=== PATIENT | female | born 1940 | race Caucasian/White ===

== ENCOUNTER 2022-07-20 11:56 | Emergency (ER) | payer OTHER, SELFPAY ==
[2022-07-20] VITALS (16 sets, daily range): BP systolic 144–172; BP diastolic 86–126; PULSE 67–106; RESP 13–26; TEMP 36.6; O2SAT 90–95; BMI 27.1
--- NOTE | 2022-07-20 12:10 | DI.RAD.S_ITS ---
PROCEDURE: XR CHEST 2V INDICATIONS: Shortness of breath TECHNIQUE: 2 views of the chest were acquired. COMPARISON: None. FINDINGS: Cardiomegaly. Increased interstitial markings in both lungs with mild pulmonary vascular congestion indicative of mild to moderate pulmonary edema. No acute airspace opacity. Small left pleural effusion. No pneumothorax. Left upper extremity PICC terminates in the inferior aspect of the SVC. IMPRESSION: Cardiomegaly with mild to moderate interstitial edema. Small left pleural effusion. Dictated by: Cayetano Thornton M.D. on 07/20/2022 at 12:36 Approved by: Cayetano Thornton M.D. on 07/20/2022 at 12:37
[2022-07-20 13:52] LABS: Add Manual Diff / Slide Review NO; Basophils Absolute Auto 100 /uL (0-100); Basophils Percent Auto 1.1 % (0-2); Eosinophils Absolute Auto 200 /uL (0-450); Hematocrit 33.6 % (36-46); Hemoglobin 11.2 g/dL (12.0-16.0); Lymphocytes Absolute Auto 900 /uL (1100-4500); Lymphocytes Percent Auto 9.2 % (25-40); Mean Corpuscular HGB Conc 33.4 % (30-36); Mean Corpuscular Hemoglobin 30.1 PG (26-34); Mean Corpuscular Volume 90.1 fL (80-100); Monocytes Absolute Auto 1000 /uL (0-900); Monocytes Percent Auto 10.2 % (3-14); Neutrophils Absolute Auto 7600 /uL (1500-7000); Neutrophils Percent Auto 77.5 % (50-75); Platelet Count 296 X10^3/uL (150-400); Red Blood Cell Count 3.74 X10^6/uL (4.0-5.2); Red Cell Distribution Width 16.2 % (11.6-14.8); White Blood Cell Count 9.7 X10^3/uL (4.5-11.0)
--- NOTE | 2022-07-20 13:53 | ED.SOB ---
HPI - SOB/Dyspnea General Chief Complaint: Shortness of Breath/Dyspnea Stated Complaint: SOB Time Seen by Provider: 07/20/22 12:10 Source: patient Mode of arrival: EMS Limitations: no limitations History of Present Illness HPI Narrative: Patient is a 82-year-old female with recent history of spinal at abscess in her cervical region. She also has history of atrial fibrillation, anemia, cardiomyopathy she is anticoagulated on Eliquis and Lovenox shots presenting today with increasing shortness of breath. She says that she was quite swollen and still feels like she is above her baseline weight. She started having some shortness of breath while lying flat last night. She has no lower extremity edema. He she denies shortness of breath with exertion. Staff at rehab facility noticed that her O2 sat was in the 80s. EMS called she did require 1-2 L of nasal cannula. She has no chest pain no abdominal pain. She has no palpitations. She has no new neurologic deficits. Related Data Home Medications Medication Instructions Recorded Confirmed [BLOOD PRESSURE MEDS] HS ##0 04/27/07 Previous Rx's Medication Instructions Recorded furosemide 40 mg tablet 40 mg PO BID #30 tabs 07/20/22 Allergies Allergy/AdvReac Type Severity Reaction Status Date / Time latex [LATEX] Allergy Mild RASH/ITCH Verified 07/20/22 12:01 codeine [CODEINE] AdvReac Intermediate nausea Verified 07/20/22 12:01 Review of Systems Review of Systems Narrative: GENERAL: Denies chills, fatigue, malaise, fever, sweats, travel HEENT: Denies sinus pain, ear pain, sore throat, difficulty swallowing, neck pain RESPIRATORY: See HPI CARDIOVASCULAR: See HPI GASTROINTESTINAL: Denies nausea, vomiting, abdominal pain, diarrhea, constipation, melena. : Denies dysuria, frequency, incontinence, hematuria, urinary retention, flank pain. MUSCULOSKELETAL: Denies weakness, joint pain, or bony pain SKIN: No rash, no erythema, no pruritus NEUROLOGIC: Denies weakness, dizziness, headache, numbness, change in speech, confusion PSYCHIATRIC: No concerning psychosocial issues. 12 point review of systems is negative except for those stated above and HPI Patient History Social History Smoking Status: Unknown if ever smoked Smoking Status: Unknown if ever smoked alcohol intake frequency: holidays/special occasions only Substance Use Type: does not use Exam Initial Vital Signs Initial Vital Signs: Vital Signs Temperature 97.9 F 07/20/22 11:58 Pulse Rate 69 07/20/22 11:58 Respiratory Rate 15 07/20/22 11:58 Blood Pressure 147/99 H 07/20/22 11:58 Pulse Oximetry 94 07/20/22 11:58 Oxygen Delivery Method 07/20/22 11:58 GENERAL: Alert pleasant 82-year-old female HEENT: Head atraumatic,EOMI, pupils reactive, face symmetric, moist mucous membranes CARDIOVASCULAR: Regular rate and rhythm without murmurs, rubs or gallops. RESPIRATORY: Mild crackles bilateral no tachypnea no conversational dyspnea ABDOMEN: Soft, nontender. Normoactive bowel sounds all 4 quadrants. No guarding or rebound. EXTREMITIES: Normal range of motion, no clubbing or edema. Neurovascularly intact NEUROLOGICAL: Alert and oriented x4 tissue recovery technician strength equal bilaterally, mild left leg SKIN: Warm, dry, no laceration, no petechiae, no rashes or lesions. Course Orders Ordered: ED Orders 07/20/22 12:10 XR chest 2V Stat Measure peak expiratory flow ONCE RT Consult Eval and Treat Now 07/20/22 12:30 EKG-12 Lead Stat 07/20/22 13:09 Complete Blood Count AUTO DIFF Stat Comprehensive Metabolic Panel Stat Lactate (Lactic Acid) Stat NT-proBNP (BNP-Adult 18+) Stat Prothrombin Time INR Stat Troponin & CK Cardiac Panel Stat 07/20/22 14:17 Urine Microscopic Stat Discontinued Medications Furosemide (Furosemide 40 Mg/4 Ml Vial) 40 mg IV NOW ONE Stop: 07/20/22 14:11 Last Admin: 07/20/22 15:30 Dose: 40 mg Documented By: MARIA ALEJANDRA Heparin Sodium (Porcine) (Heparin Flush (Cl/Picc/Mid-Line) 50 Unit/5 Ml Syringe) 50 unit IV NOW ONE Stop: 07/20/22 17:40 Last Admin: 07/20/22 17:43 Dose: 50 unit Documented By: MARIA ALEJANDRA Vital Signs Vital signs: Vital Signs - 8 hr 07/20/22 12:30 07/20/22 12:30 07/20/22 13:00 Pulse Rate 75 Respiratory Rate Blood Pressure 148/101 H 144/106 H Pulse Oximetry 94 Oxygen Delivery Method 07/20/22 13:00 07/20/22 13:30 07/20/22 13:30 Pulse Rate 77 67 Respiratory Rate 15 Blood Pressure 150/91 H Pulse Oximetry 93 93 Oxygen Delivery Method 07/20/22 14:00 07/20/22 14:00 07/20/22 14:30 Pulse Rate 76 69 Respiratory Rate 19 13 Blood Pressure 149/101 H Pulse Oximetry 95 92 Oxygen Delivery Method 07/20/22 14:31 07/20/22 14:31 07/20/22 15:00 Pulse Rate 68 Respiratory Rate 18 Blood Pressure 164/98 H 157/126 H Pulse Oximetry 94 Oxygen Delivery Method 07/20/22 15:00 07/20/22 15:30 07/20/22 15:30 Pulse Rate 77 80 Respiratory Rate 17 18 Blood Pressure 172/103 H Pulse Oximetry 93 94 Oxygen Delivery Method 07/20/22 16:00 07/20/22 16:00 07/20/22 16:30 Pulse Rate 90 96 H Respiratory Rate 24 Blood Pressure 171/118 H Pulse Oximetry 91 Oxygen Delivery Method 07/20/22 16:31 07/20/22 16:31 07/20/22 17:00 Pulse Rate 99 H 79 Respiratory Rate 15 Blood Pressure 165/100 H Pulse Oximetry 90 L 95 Oxygen Delivery Method 07/20/22 17:30 Pulse Rate 104 H Respiratory Rate 26 H Blood Pressure Pulse Oximetry 93 Oxygen Delivery Method Room Air MDM - SOB/Dyspnea Lab Data Result diagrams: 07/20/22 13:09 07/20/22 13:09 Labs: Lab Results 07/20/22 07/20/22 07/20/22 Range/Units 13:09 13:09 13:09 WBC 9.7 (4.5-11.0) X10^3/uL RBC 3.74 L (4.0-5.2) X10^6/uL Hgb 11.2 L (12.0-16.0) g/dL Hct 33.6 L (36-46) % MCV 90.1 (80-100) fL MCH 30.1 (26-34) PG MCHC 33.4 (30-36) % RDW 16.2 H (11.6-14.8) % Plt Count 296 (150-400) X10^3/uL Neut % (Auto) 77.5 H (50-75) % Lymph % (Auto) 9.2 L (25-40) % [place] % (Auto) 10.2 (3-14) % Eos % (Auto) 2.0 (2-4) % Baso % (Auto) 1.1 (0-2) % Neut # (Auto) 7600 H (3607-3955) /uL Lymph # (Auto) 900 L (0891-4904) /uL [place] # (Auto) 1000 H (0-900) /uL Eos # (Auto) 200 (0-450) /uL Baso # (Auto) 100 (0-100) /uL PT 14.2 H (10.1-12.7) SECONDS INR 1.2 (0.9-1.3) Sodium 137 (137-145) mmol/L Potassium 4.3 (3.4-5.1) mmol/L Chloride 102 (98-107) mmol/L Carbon Dioxide 25 (22-32) mmol/L BUN 38 H (7-17) mg/dL Creatinine 1.13 H (0.52-1.04) mg/dL Estimated GFR 49 L (>60) mL/min BUN/Creatinine Ratio 33.6 H (6-22) Glucose 106 (80-110) mg/dL Lactate (0.7-2.1) mmol/L Calcium 9.1 (8.4-10.2) mg/dL Total Bilirubin 0.4 (0.2-1.3) mg/dL AST 38 H (14-36) IU/L ALT 39 H (<35) IU/L Alkaline Phosphatase 165 H (38-126) U/L Total Creatine Kinase (30-135) U/L CK-MB (CK-2) CK-MB (CK-2) Rel Index Troponin I (0.01-0.034) ng/mL NT-Pro-B Natriuret Pep 29010 H (<450) pg/mL Total Protein 6.7 (6.3-8.2) g/dL Albumin 3.6 (3.5-5.0) g/dL Globulin 3.1 (1.7-4.1) g/dL Albumin/Globulin Ratio 1.2 (1.0-2.8) Urine RBC (0-5/HPF) Urine WBC (0-5/HPF) Ur Squamous Epith Cells (0-5/HPF) Urine Bacteria (None) Ur Culture Indicated? 07/20/22 07/20/22 07/20/22 Range/Units 13:09 13:09 14:17 WBC (4.5-11.0) X10^3/uL RBC (4.0-5.2) X10^6/uL Hgb (12.0-16.0) g/dL Hct (36-46) % MCV (80-100) fL MCH (26-34) PG MCHC (30-36) % RDW (11.6-14.8) % Plt Count (150-400) X10^3/uL Neut % (Auto) (50-75) % Lymph % (Auto) (25-40) % [place] % (Auto) (3-14) % Eos % (Auto) (2-4) % Baso % (Auto) (0-2) % Neut # (Auto) (1497-1461) /uL Lymph # (Auto) (1373-5102) /uL [place] # (Auto) (0-900) /uL Eos # (Auto) (0-450) /uL Baso # (Auto) (0-100) /uL PT (10.1-12.7) SECONDS INR (0.9-1.3) Sodium (137-145) mmol/L Potassium (3.4-5.1) mmol/L Chloride (98-107) mmol/L Carbon Dioxide (22-32) mmol/L BUN (7-17) mg/dL Creatinine (0.52-1.04) mg/dL Estimated GFR (>60) mL/min BUN/Creatinine Ratio (6-22) Glucose (80-110) mg/dL Lactate 1.3 (0.7-2.1) mmol/L Calcium (8.4-10.2) mg/dL Total Bilirubin (0.2-1.3) mg/dL AST (14-36) IU/L ALT (<35) IU/L Alkaline Phosphatase (38-126) U/L Total Creatine Kinase 43 (30-135) U/L CK-MB (CK-2) TNP CK-MB (CK-2) Rel Index TNP Troponin I < 0.012 (0.01-0.034) ng/mL NT-Pro-B Natriuret Pep (<450) pg/mL Total Protein (6.3-8.2) g/dL Albumin (3.5-5.0) g/dL Globulin (1.7-4.1) g/dL Albumin/Globulin Ratio (1.0-2.8) Urine RBC None seen (0-5/HPF) Urine WBC None seen (0-5/HPF) Ur Squamous Epith Cells None seen (0-5/HPF) Urine Bacteria None seen (None) Ur Culture Indicated? Cult not indicated Urine Dip Bedside Urine Glucose Negative Bedside Urine Bilirubin - Negative Bedside Urine Ketone - Negative Urine Specific [place] 1.015 Bedside Urine Occult Blood - Negative Bedside Urine pH 6.0 Bedside Urine Protein +/- 15 Bedside Urine Urobilinogen - Negative Bedside Urine Nitrite - Negative Bedside Urine Leukocytes - Negative Esterase Imaging Data Chest x-ray: Radiologist's Impression: nt: Ruslan Garcia MR#: [id number] : 1940 Acct:[id number] Age/Sex: 82 / F Date of Service: 07/20/22 Loc: ED Accession Number: [id number] ?? Procedure: XR chest 2V Ordering Provider: Coleen Noyola D.O. PROCEDURE:? XR CHEST 2V ? INDICATIONS:? Shortness of breath ? TECHNIQUE:? 2 views of the chest were acquired.? ? COMPARISON:? None. ? FINDINGS:? ? Cardiomegaly.? Increased interstitial markings in both lungs with mild pulmonary vascular congestion indicative of mild to moderate pulmonary edema.? No acute airspace opacity.? Small left pleural effusion.? No pneumothorax.? Left upper extremity PICC terminates in the inferior aspect of the SVC. ? IMPRESSION:? Cardiomegaly with mild to moderate interstitial edema.? Small left pleural effusion. ? ? Dictated by: Cayetano Thornton M.D. on 07/20/2022 at 12:36 ? ? ECG Data Interpretation: Atrial fibrillation rate [address] changes no priors to compare MDM Narrative Medical decision making narrative: The patient having any conversational dyspnea she is O2 levels 89 tonight 3% on room air. She is given Lasix here in the emergency department. At this time BNP elevated at 17,000 thousand probably does have acute exacerbation of congestive heart failure. This is unlikely to be pulmonary embolism seeing as though she is on both Eliquis and Lovenox. Ambulation trial in the ED she actually does very well no tachycardia no hypoxia no complaints of shortness of breath. I do have reports that she did receive a prescription for Lasix on July 16 for 40 mg once daily at this time will increases to twice daily and see how she does. This time I see no indication for hospitalization. Discharge Plan Departure Patient Disposition: Home Clinical Impression: CHF (congestive heart failure) Instructions: DI for Heart Failure Activity Restrictions/Additional Instructions: *You have been diagnosed with CHF *What to do: At this time it appears that there is an exacerbation of congestive heart failure. *Continue to take medications as directed Increase Lasix 40 mg twice a day for 3-4 days then resume once daily *Follow up with your primary care provider in 2-3 days or call [phone] *Return to ER if you should have increasing chest pain shortness of breath oxygen less than 89% or any new, worsening or concerning symptoms Prescriptions: New furosemide 40 mg tablet 40 mg PO BID Qty: 30 0RF No Action [BLOOD PRESSURE MEDS] HS Qty: 0 Referrals: Abad Beach MD [Primary Care Provider] - Visit Report Forms: Patient Portal/API
[2022-07-20 13:56] LABS: Alanine Aminotransferase 39 IU/L (<35); Albumin 3.6 g/dL (3.5-5.0); Albumin Globulin Ratio 1.2 (1.0-2.8); Alkaline Phosphatase 165 U/L (38-126); Aspartate Aminotransferase 38 IU/L (14-36); BUN Creatinine Ratio 33.6 (6-22); Bilirubin Total 0.4 mg/dL (0.2-1.3); Blood Urea Nitrogen 38 mg/dL (7-17); Calcium 9.1 mg/dL (8.4-10.2); Carbon Dioxide 25 mmol/L (22-32); Chloride 102 mmol/L (98-107); Estimated Glomerular Filt Rate 49 mL/min (>60); Globulin 3.1 g/dL (1.7-4.1); Glucose 106 mg/dL (80-110); HEMOLYSIS 21 (0-50); Potassium 4.3 mmol/L (3.4-5.1); Sodium 137 mmol/L (137-145); Total Protein 6.7 g/dL (6.3-8.2)
[2022-07-20 13:57] LABS: Lactate (Lactic Acid) 1.3 mmol/L (0.7-2.1)
[2022-07-20 14:05] LABS: NT-proBNP (BNP-Adult 18+) 17000 pg/mL (<450)
[2022-07-20 14:13] LABS: INR 1.2 (0.9-1.3); Prothrombin Time 14.2 SECONDS (10.1-12.7)
[2022-07-20 15:08] LABS: Creatine Kinase 43 U/L (30-135)
[2022-07-20 15:19] LABS: Bacteria Urine None Seen; RBC Urine None Seen (0-5/HPF); Squamous Epithelial Cell Urine None Seen (0-5/HPF); WBC Urine None Seen (0-5/HPF)
[2022-07-20 15:20] LABS: Culture Indicated Urine Cult Not Indicated
[2022-07-20 15:21] LABS: Troponin I < 0.012 ng/mL (0.01-0.034)
[2022-07-20] MEDS: FUROSEMIDE 40 MG/4 ML VIAL IV (15:30)
== END 2022-07-20 17:59 | disposition home or self-care (01) ==
PROVIDERS: Emergency Provider Emergency Medicine; PCP Student in an Organized Health Care Education/Training Program
DX: I50.9 Heart failure, unspecified (principal); Z79.01 Long term (current) use of anticoagulants; I48.91 Unspecified atrial fibrillation
CPT/HCPCS: 71046; 80053; 81003; 81015; 82550; 83605; 83880; 84484; 85025; 85610; 93005; 93010; 96374; 99284; J1642; J1940